=== PATIENT | female | born 1940 | race Caucasian/White ===

== ENCOUNTER → 2016-10-31 | Outpatient (CLI) | payer OTHER ==
[~2016-10-31] VITALS: Ht 157.5 cm; Wt 64.9 kg
[~2016-10-31] MED LIST: CELEBREX 200 M200 MG PO; CYMBALTA20 MG PO; HYDROCHLOROTHIA25 M2 PO; HYDROCODON-ACE1 EAC5 PO; HYDROCODON-ACE1 EAC7 PO; HYDROCODONE-AP1 EACH PO; IMITREX 50 MG T50 MG PO; PREMARIN1.25 MG PO; SYNTHROID50 MCG PO; TOPROL XL50 MG PO; VALIUM5 MG PO
--- NOTE | ~2016-10-31 | CRIT ---
[facility] [place] [address] CRITICAL CARE NOTE Name: BEVERLEY ALAMO Room #: REG SHARONA Dmitri.#: [id number] Admission: 10/31/16 Attend Phys: Dmitriy Rojo MD Discharge: Date of : 40 Report #: [id number] THIS REPORT FOR: //name// CC: [facility] physician/PCP Dmitriy Rojo DATE OF SERVICE: 10/31/2016 CHIEF COMPLAINT: Low back pain, radiating to the right leg. I am seeing this patient today for 2 level transforaminal epidural injection. She has responded very well to these injections, last injection was in 03/2016. She has a little bit of back pain, most of the pain is neuropathic, radiates into the leg and she has been able to manage this with injections and a small amount of oxycodone. I provided with [place] 10/325, which she can get up to 4 times a day, oftentimes taking only 1 to 2 when the pain is well controlled by the epidural. Generally, as the epidural begins to wear off she will increase the dose to may be a third may be a four tablet per day. She is under an opioid agreement. She understands the terms of that agreement, safeguards all medication and takes them as prescribed. She has no other prescribers. She is here today with her daughter. She has an upcoming wedding of grandchild in 2 weeks; they are both looking forward to receiving some pain relief, so she will be able to enjoy that family activity. Her health has otherwise been good. She has not seen any physician for any other reasons over the course of the last 4 to 6 months. She has recently returned from [place] where she spends the winter. Pain today is a 7/10. She describes it as a dull aching, radiating pain that began in low back, radiates to the right side in the L4-L5 distribution. PHYSICAL EXAMINATION: GENERAL: Pleasant, alert and oriented. VITAL SIGNS: Blood pressure 170/82, heart rate 75, respirations 16 and BMI is 26.1. MUSCULOSKELETAL: She has right-sided straight leg raising ____ reproduces right radicular symptoms into the right leg. She has some mild weakness and atrophy noted in the thigh. 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 RECOMMENDATION: L4-L5 and L5-S1 2 level transforaminal epidural injection under [facility] [address] [place] [address] CRITICAL CARE NOTE Name: CALLYBEVERLEY L Room #: REG CLI Nadia#: [id number] Admission: 10/31/16 Attend Phys: Dmitriy Rojo MD Discharge: Date of : 40 Report #: [id number] fluoroscopic guidance. PROCEDURE: She was taken to the fluoroscopic suite. She was placed prone, skin prepped with ChloraPrep. Skin was anesthetized over the neural foramen mentioned. Using triplanar fluoroscopic views, I advanced needles into the neural foramen at each level. After negative aspiration 0.25 mL of Omnipaque was injected demonstrating excellent spread of dye into the epidural space and along the nerve root at L5 and L4. This was then followed by 2 mL of 0.5% lidocaine and 40 mg of triamcinolone in the each foramen and the needles were removed. She tolerated the procedure well. Pain was reduced at discharge and she was given medication under terms of our agreement, hydrocodone 10/325 one tablet q.6 hours p.r.n., 120 tablets. Followup visit planned in 3 months. By: [id number] Dmitriy Rojo MD /nt
[2016-10-31 08:04] VITALS: BP 170/82
== END ==
LOC: PAIN 06:04
DX: M54.17 Radiculopathy, lumbosacral region (principal); I10 Essential (primary) hypertension; Z87.891 Personal history of nicotine dependence

== ENCOUNTER → 2017-05-04 | Outpatient (CLI) | payer OTHER ==
[~2017-05-04] VITALS: Ht 157.5 cm; Wt 69.7 kg
--- NOTE | ~2017-05-04 | HPC ---
[facility] [place] [address] PAIN MANAGEMENT CONSULTATION Name: ALAMOBEVERLEY L Room #: REG YAZJonathan Zuniga#: [id number] Admission: 05/04/17 Attend Phys: Dmitriy Rojo MD Discharge: Date of : 40 Report #: [id number] THIS REPORT FOR: //name// CC: [facility] physician/PCP Dmitriy Rojo DATE OF SERVICE: 05/04/2017 Followup visit for lumbar radiculopathy. The patient returns to pain clinic today for 2-level transforaminal epidural injections. She has had these injections in the past with good response. She has a lot of scar tissue in and around the area of her previous laminectomy. Pain follows an L4-L5, L5-S1 distribution. In addition to her injections, I provided with hydrocodone in conjunction with her doctor in [place]. He allows her to take no more than 4 tablets a day and I have sent my dictations to his office again today. She is on an opioid agreement with our office and I have explained to her the importance of safeguarding all medications. She is preparing to leave for [place] with family. She is hopeful that she will get relief. Pain again is similar, radiates from the right leg down the anterolateral thigh in L4-L5 distribution. Some mild weakness with straight leg raising. Pulses are palpable in both feet and she has discussed some potential vasculopathy. PQRS issues were reviewed. She no longer smokes. She tries to exercise for her osteoarthritis. Her BMI is 28.1. She eats well and is following a diet. She has no fall risk issues and is not using a walker. Lengthy discussion about opioid management, CDC guidelines and she is on a written opioid agreement. Side effects are managed easily. IMPRESSION: Low back pain with radiculopathy on the right L4-L5. PROCEDURE: Right L4-L5, L5-S1 transforaminal epidural injection. PROCEDURE DESCRIPTION: She was taken to the fluoroscopic suite for treatment. She was placed prone, skin was prepped with ChloraPrep. Skin was anesthetized over the neural foramen. 22-gauge needles were then advanced gently into the neural foramen. She had quite a bit of discomfort during the injection of radiographic dye, although good epidural spread was noted and the medicine flowed freely suggesting it was in a nice area and space between the nerves and along the scar tissue. I then gently injected through each needle 3 mL of 1% lidocaine mixed with 40 mg of triamcinolone. She tolerated the procedure well, [facility] [address] [place] [address] PAIN MANAGEMENT CONSULTATION Name: BEVERLEY ALAMO Room #: REG CLI [facility].#: [id number] Admission: 05/04/17 Attend Phys: Dmitriy Rojo MD Discharge: Date of : 40 Report #: [id number] was observed for about 45 minutes and discharged to recovery room. Follow up as needed. <ELECTRONICALLY SIGNED> By: Dmitriy Rojo MD 05/15/17 [id number] Dmitriy Rojo MD /richy
[2017-05-04 10:09] VITALS: BP 141/75
== END | disposition home or self-care (01) ==
LOC: PAIN 06:54
DX: M54.16 Radiculopathy, lumbar region (principal); Z98.890 Other specified postprocedural states; Z87.891 Personal history of nicotine dependence